=== PATIENT | female | born 1960 | race Caucasian/White ===

== ENCOUNTER 2019-09-01 17:50 | Observation (INO) | payer MEDICAID ==
[2019-09-01] MEDS ORDERED: NITROGLYCERIN 0.4 MG/TAB 25 TAB/BOTTLE SL ONE (18:12)
--- NOTE | 2019-09-01 18:15 | ER Document Report ---
ED Medical Screen (RME) - General Chief Complaint: Chest Pain Stated Complaint: CHEST PAIN Time Seen by Provider: 09/01/19 18:05 Notes: Patient is a 59-year-old female with a past history of a triple bypass surgery 2 years ago, stent placement, and myocardial infarction who presents to the emergency department with chest pain. Patient states that her chest pain started about 40 minutes prior to arrival. She has taken 2 sublingual nitrogly cerin with no relief of her symptoms. Patient states that the pain is in the middle of her chest and states that it feels like heartburn. Patient is a 1 pack-a-day smoker. Of note: Patient has recently changed her last name. Her previous last name was Cristy. Exam: Bradycardia with PVC noted on twelve-lead EKG. I have greeted and performed a rapid initial assessment of this patient. A c omprehensive ED assessment and evaluation of the patient, analysis of test results and completion of medical decision making process will be conducted by an additional ED providers. - Related Data Allergies/Adverse Reactions: Penicillins Allergy (Verified 09/01/19 18:08) Tetracyclines Allergy (Verified 09/01/19 18:08) Physical Exam - Vital signs Vitals: Temp Pulse Resp BP Pulse Ox 98.0 F 112 H 20 159/60 H 96 09/01/19 18:04 09/01/19 18:04 09/01/19 18:04 09/01/19 18:04 09/01/19 18:04 Course - Vital Signs Vital signs: Temp Pulse Resp BP Pulse Ox 98.0 F 112 H 20 159/60 H 96 09/01/19 18:04 09/01/19 18:04 09/01/19 18:04 09/01/19 18:04 09/01/19 18:04
[2019-09-01] MEDS ORDERED: ONDANSETRON HCL INJ/PF 4 MG/2 ML SDV IV ONE (18:38)
[2019-09-01] MEDS: MORPHINE SULFATE 10 MG/ML INJ IV PRN ×2 (18:43→23:14)
--- NOTE | 2019-09-01 18:45 | ER Document Report ---
ED General - General Chief Complaint: Chest Pain Stated Complaint: CHEST PAIN Time Seen by Provider: 09/01/19 18:05 - HPI Notes: Ms. Brewster is a 59-year-old female with a prior history of coronary artery bypass graft surgery at [facility] 2 years ago now presenting with a chief complaint of chest pain onset at rest about 330 this afternoon. Patient says this first time she has had any such discomfort since her prior surgery. She describes this as an oppressive discomfort radiating to fingers of both hands. Mild associated dyspnea. No diaphoresis no nausea or vomiting. Intensity of the pain is now 8/10. Patient unfortunately continues to smoke about 1 pack of cigarettes per day. She is a diabetic has a history of hypertension hyperlipidemia and a positive family history of coronary disease. Patient denies any known history of thromboembolic disease. HEART Score: HISTORY 1 ECG 1 AGE 1 RISK FACTORS 2 TROPONIN 0 TOTAL: 5 If HEART score is = 3 AND both tronponin measurments are normal, the 30 day risk of a major adverse cardiac event (all-cause mortality, myocardia infarction or need for coronary revscularization) is < 1% (Sensitivity 100%, NPV 100%). - Related Data Allergies/Adverse Reactions: Penicillins Allergy (Verified 09/01/19 18:08) Tetracyclines Allergy (Verified 09/01/19 18:08) Past Medical History - General Information source: Patient, Relative - Social History Smoking Status: Current Every Day Smoker Family History: CAD Patient has suicidal ideation: No Patient has homicidal ideation: No Review of Systems - Review of Systems Notes: Constitutional: Negative for fever. HENT: Negative for sore throat. Eyes: Negative for visual changes. Cardiovascular: As per HPI. Respiratory: As per HPI. Gastrointestinal: Negative for abdominal pain, vomiting or diarrhea. Genitourinary: Negative for dysuria. Musculoskeletal: Negative for back pain. Skin: Negative for rash. Neurological: Negative for headaches, weakness or numbness. 10 point ROS negative except as marked above and in HPI. Physical Exam - Vital signs Vitals: Temp Pulse Resp BP Pulse Ox 98.0 F 112 H 20 159/60 H 96 09/01/19 18:04 09/01/19 18:04 09/01/19 18:04 09/01/19 18:04 09/01/19 18:04 - Notes Notes: GENERAL: Well-developed well-nourished appearing in mild discomfort. strong odor of tobacco present . SKIN: Good turgor no rashes. HEAD: Normocephalic atraumatic. EYES: PERRLA. Conjunctivae and sclerae clear. EARS: CANALS AND TMS CLEAR. NOSE: CLEAR. MOUTH: Moist mucosa. Edentulous with dentures. No stridor or edema. No drooling. NECK: Supple. No masses or thyromegaly. No adenopathy. Carotids 2+ without bruits. No JVD. Throat: Clear. BACK: Symmetrical without tenderness. CHEST: Mild anterior chest wall discomfort which does not exactly reproduce her pain. Respirations unlabored. Breath sounds clear and symmetrical. HEART: Slow regular rhythm. No murmur gallop or rub. ABDOMEN: Soft nontender without masses, organomegaly or rebound. Bowel sounds normally active. No bruits. GENITALIA: Deferred. EXTREMITIES: Moderate degenerative changes of interphalangeal joints of both hands. No edema. No calf tenderness. Cap refill less than 1.5 seconds. Dorsalis pedis and posterior tibial pulses 3+ and symmetrical. NEUROLOGICAL: GCS 15. Alert and oriented x3. Normal gait. Fluent speech. Fan Blade Truer nial nerves II through XII intact. Sensorimotor and cerebellar normal. Normal tone. Course - Re-evaluation Re-evalutation: 09/01/19 18:46 Patient is placed on operational intelligence officer with establishment of saline lock IV and she will be given morphine and Zofran at this time. Cardiac enzymes CBC and comprehensive metabolic profile ordered. D-dimer ordered. 09/01/19 19:49 Patient is pain-free at this time. Will repeat EKG. 09/01/19 20:26 Patient has a heart score of 5 and is going to need admission. Her d-dimer was minimally elevated 0.51. I am going to get CTA of the chest to rule out PE before admission. 09/01/19 21:55 CTA negative for PE per radiologist. Hospitalist Dr. Fady Andrade has accepted patient for admission to telemetry observation. - Vital Signs Vital signs: Temp Pulse Resp BP Pulse Ox 98.0 F 112 H 20 159/60 H 96 09/01/19 18:04 09/01/19 18:04 09/01/19 18:04 09/01/19 18:04 09/01/19 18:04 - Laboratory Result Diagrams: 09/01/19 18:42 09/01/19 18:42 Laboratory results interpreted by me: 09/01/19 09/01/19 18:42 19:10 D-Dimer 0.51 H BUN 6 L Glucose 129 H First troponin is normal - Diagnostic Test Radiology reviewed: Reports reviewed - EKG Interpretation by Me EKG shows normal: Sinus rhythm Rate: Bradycardia - Occasional PVCs. Old anteroseptal [place] with no acute ST/T wave changes. Discharge - Discharge Clinical Impression: Chest pain, Cigarette smoker Disposition: ADMITTED OBSERVATION Admitting Provider: Raymond (Hospitalist) Unit Admitted: Telemetry
--- NOTE | 2019-09-01 18:47 | RADIOLOGY REPORT (SQ) ---
EXAM DESCRIPTION: CHEST SINGLE VIEW COMPLETED DATE/TIME: 09/01/2019 6:24 pm REASON FOR STUDY: chest pain COMPARISON: None. EXAM PARAMETERS: NUMBER OF VIEWS: One view. TECHNIQUE: Single frontal radiographic view of the chest acquired. RADIATION DOSE: NA LIMITATIONS: None. FINDINGS: LUNGS AND PLEURA: No opacities, masses or pneumothorax. No pleural effusion. MEDIASTINUM AND HILAR STRUCTURES: No masses. Contour normal. HEART AND VASCULAR STRUCTURES: Heart normal in size. Normal vasculature. BONES: No acute findings. HARDWARE: Sternotomy wires. OTHER: No other significant finding. IMPRESSION: NO ACUTE RADIOGRAPHIC FINDING IN THE CHEST. TECHNICAL DOCUMENTATION: JOB ID: [id number] [employer]- All Rights Reserved Reading location - IP/workstation name: [email or web address]
[2019-09-01 18:53] LABS: ABSOLUTE BASOPHILS # (AUTO) 0.1 10^3/uL (0.0-0.2); ABSOLUTE EOSINOPHILS # (AUTO) 0.2 10^3/uL (0.0-0.6); ABSOLUTE MONOCYTES (AUTO) 0.4 10^3/uL (0.1-1.4); HEMOGLOBIN 13.2 g/dL (12.0-15.5); TOTAL CELLS COUNTED % (AUTO) 100 %
[2019-09-01 18:57] LABS: ABSOLUTE LYMPHOCYTES (AUTO) 2.6 10^3/uL (0.5-4.7); ABSOLUTE NEUT (AUTO) 3.8 10^3/uL (1.7-8.2); BASOPHILS % (AUTO) 1.6 % (0-2); EOSINOPHILS % (AUTO) 2.7 % (0-6); HEMATOCRIT 38.5 % (36.0-47.0); LYMPHOCYTES % (AUTO) 37.1 % (13-45); MEAN CORPUSCULAR HEMOGLOBIN 29.4 pg (27.0-33.4); MEAN CORPUSCULAR HGB CONC 34.2 g/dL (32.0-36.0); MEAN CORPUSCULAR VOLUME 86 fl (80-97); MONOCYTES % (AUTO) 5.3 % (3-13); PLATELET COUNT 291 10^3/uL (150-450); RED BLOOD COUNT 4.48 10^6/uL (3.72-5.28); RED CELL DISTRIBUTION WIDTH 12.8 % (11.5-14.0); SEGMENTED NEUTROPHILS % (AUTO) 53.3 % (42-78); WHITE BLOOD COUNT 7.1 10^3/uL (4.0-10.5)
[2019-09-01 19:12] LABS: ALBUMIN 4.2 g/dL (3.5-5.0); ALKALINE PHOSPHATASE 57 U/L (38-126); ANION GAP 10 (5-19); ASPARTATE AMINO TRANSFERASE 21 U/L (14-36); BILIRUBIN,DIRECT 0.2 mg/dL (0.0-0.4); BILIRUBIN,TOTAL 0.3 mg/dL (0.2-1.3); BLOOD UREA NITROGEN 6 mg/dL (7-20); CALCIUM 9.4 mg/dL (8.4-10.2); CARBON DIOXIDE 25 mmol/L (22-30); CHLORIDE 105 mmol/L (98-107); CREATINE KINASE 87 U/L (30-135); GLUCOSE 129 mg/dL (75-110); POTASSIUM 4.3 mmol/L (3.6-5.0); TOTAL PROTEIN 7.3 g/dL (6.3-8.2)
[2019-09-01 20:06] LABS: PROTHROMBIN TIME 13.1 SEC (11.4-15.4)
--- NOTE | 2019-09-01 21:31 | RADIOLOGY REPORT (SQ) ---
EXAM DESCRIPTION: Rad[facility]: CT CHEST ANGIOGRAPHY WITHOUT THEN WITH IV CONTRAST CLINICAL HISTORY: 59 years Female; Rule out PE; TECHNIQUE: CT angiogram of the chest using intravenous contrast.. MIP reconstructions were performed. All CT scans at this facility use dose modulation, iterative reconstruction, and/or weight based dosing when appropriate to reduce radiation dose to as low as reasonably achievable. COMPARISON: None. FINDINGS: Chest: No filling defects in the central pulmonary arteries. No acute infiltrate, effusion, or pneumothorax. Changes of previous sternotomy are noted. No mediastinal adenopathy. No pericardial effusion. Aorta: Mild scattered calcific plaque. No aneurysm or dissection. IMPRESSION: 1. No CT evidence for pulmonary embolism. 2. No acute pulmonary findings. 3. Previous sternotomy
[2019-09-01] MEDS ORDERED: ACETAMINOPHEN 325 MG TABLET PO PRN (21:55)
[2019-09-01] MEDS ORDERED: NITROGLYCERIN 0.4 MG/TAB 25 TAB/BOTTLE SL PRN (21:55)
[2019-09-01] MEDS ORDERED: ATORVASTATIN CALCIUM 40 MG TABLET PO SCH (22:00)
--- NOTE | 2019-09-01 22:46 | EKG REPORT ---
SEVERITY:- ABNORMAL ECG - SINUS BRADYCARDIA MULTIPLE VENTRICULAR PREMATURE COMPLEXES BORDERLINE LEFT AXIS DEVIATION ABNRM R PROG, CONSIDER ASMI OR LEAD PLACEMENT NONSPECIFIC T ABNORMALITIES, ANT-LAT LEADS : Confirmed by: Gary Mcbride MD 01-Sep-2019 22:46:14
[2019-09-02] MEDS ORDERED: TRAZODONE HCL 50 MG TABLET PO ONE (00:15)
[2019-09-02] MEDS ORDERED: ZOLPIDEM TARTRATE 5 MG TABLET PO ONE (00:15)
--- NOTE | 2019-09-02 06:34 | PDOC H&P ---
History of Present Illness Admission Date/PCP: 09/01/19 22:36 Patient complains of: Chest pain History of Present Illness: JENNIFER EUGENE is a 59 year old female with a past medical history of hypertension, dyslipidemia, anxiety, depression, coronary artery disease status post coronary artery bypass grafting at [facility] and in 2015. Patient presents with 4 hours of chest pain occurring after an argument with family members resulting in sharp retrosternal chest pain associated with shortness of breath without radiation, nausea vomiting or palpitations. It was 5 out of 5 intensity currently 1 out of 5. It was not alleviated by nitroglycerin sublingual x2, she was unable to identify exacerbating factors. Patient's last stress test was greater than a year ago which was unremarkable according to the patient. She otherwise denies recent change in medications however her prescriptions of Abilify and trazodone suggest noncompliance. Past Medical History Cardiac Medical History: Reports: Myocardial Infarction, Hyperlipidema, Hypertension Pulmonary Medical History: Reports: Chronic Obstructive Pulmonary Disease (COPD) Endocrine Medical History: Reports: Diabetes Mellitus Type 2 GI Medical History: Reports: Gastroesophageal Reflux Disease Psychiatric Medical History: Reports: Depression, General Anxiety Disorder, Tobacco Dependency Past Surgical History Past Surgical History: Reports: Cardiac Catheterization, Hysterectomy, Orthopedic Surgery Social History Information Source: Patient, [facility] Records Lives with: Family Smoking Status: Current Every Day Smoker Frequency of Alcohol Use: None Drugs: None - Advance Directive Resuscitation Status: Full Code Family History Family History: CAD Parental Family History Reviewed: Yes Children Family History Reviewed: Yes Sibling(s) Family History Reviewed.: Yes Medication/Allergy Allergies/Adverse Reactions: Penicillins Allergy (Verified 09/01/19 18:08) Tetracyclines Allergy (Verified 09/01/19 18:08) Review of Systems Constitutional: ABSENT: chills, fever(s), headache(s), weight gain, weight loss Eyes: ABSENT: visual disturbances Ears: ABSENT: hearing changes Cardiovascular: ABSENT: chest pain, dyspnea on exertion, edema, orthropnea, palpitations Respiratory: ABSENT: cough, hemoptysis Gastrointestinal: ABSENT: abdominal pain, constipation, diarrhea, hematemesis, hematochezia, nausea, vomiting Genitourinary: ABSENT: dysuria, hematuria Musculoskeletal: ABSENT: joint swelling Integumentary: ABSENT: rash, wounds Neurological: ABSENT: abnormal gait, abnormal speech, confusion, dizziness, focal weakness, syncope Psychiatric: ABSENT: anxiety, depression, homidical ideation, suicidal ideation Endocrine: ABSENT: cold intolerance, heat intolerance, polydipsia, polyuria Hematologic/Lymphatic: ABSENT: easy bleeding, easy bruising Physical Exam Vital Signs: Temp Pulse Resp BP Pulse Ox 97.7 F 112 H 14 130/53 H 95 09/02/19 06:00 09/01/19 18:04 09/02/19 05:01 09/02/19 05:01 09/02/19 05:01 Intake & Output 08/31/19 09/01/19 09/02/19 11:59 11:59 11:59 Weight 84.1 kg General appearance: PRESENT: no acute distress, well-developed, well-nourished Head exam: PRESENT: atraumatic, normocephalic Eye exam: PRESENT: conjunctiva pink, EOMI, PERRLA. ABSENT: scleral icterus Ear exam: PRESENT: normal external ear exam Mouth exam: PRESENT: moist, tongue midline Neck exam: ABSENT: carotid bruit, JVD, lymphadenopathy, thyromegaly Respiratory exam: PRESENT: clear to auscultation jesus. ABSENT: rales, rhonchi, wheezes Cardiovascular exam: PRESENT: RRR. ABSENT: diastolic murmur, rubs, systolic murmur Pulses: PRESENT: normal dorsalis pedis pul Vascular exam: PRESENT: normal capillary refill GI/Abdominal exam: PRESENT: normal bowel sounds, soft. ABSENT: distended, guarding, mass, organolmegaly, rebound, tenderness Rectal exam: PRESENT: deferred Extremities exam: PRESENT: full ROM. ABSENT: calf tenderness, clubbing, pedal edema Neurological exam: PRESENT: alert, awake, oriented to person, oriented to place, oriented to time, oriented to situation, CN II-XII grossly intact. ABSENT: motor sensory deficit Psychiatric exam: PRESENT: appropriate affect, normal mood. ABSENT: homicidal ideation, suicidal ideation Skin exam: PRESENT: dry, intact, warm. ABSENT: cyanosis, rash Results Laboratory Results: 09/01/19 18:42 09/01/19 18:42 09/01/19 09/01/19 09/01/19 18:42 18:42 18:42 WBC 7.1 RBC 4.48 Hgb 13.2 Hct 38.5 MCV 86 MCH 29.4 MCHC 34.2 RDW 12.8 Plt Count 291 Seg Neutrophils % 53.3 Sodium 139.9 Potassium 4.3 Chloride 105 Carbon Dioxide 25 Anion Gap 10 BUN 6 L Creatinine 0.71 Est GFR ( Amer) > 60 Glucose 129 H Calcium 9.4 Total Bilirubin 0.3 AST 21 Alkaline Phosphatase 57 Total Protein 7.3 Albumin 4.2 Lipase 24.6 TSH 3.77 09/01/19 09/01/19 09/02/19 18:42 18:42 00:46 Creatine Kinase 87 Troponin I < 0.012 < 0.012 Impressions: Chest X-Ray 09/01/19 18:12 IMPRESSION: NO ACUTE RADIOGRAPHIC FINDING IN THE CHEST. Chest/Abdomen CTA 09/01/19 20:24 IMPRESSION: 1. No CT evidence for pulmonary embolism. 2. No acute pulmonary findings. 3. Previous sternotomy Assessment and Plan - Diagnosis (1) Chest pain Is this a current diagnosis for this admission?: Yes Plan: Atypical chest pain sharp in nature unrelieved by nitroglycerin complicated by coronary artery disease and tobacco. Follow-up serial cardiac enzymes and stress test. (2) Hypertension Is this a current diagnosis for this admission?: Yes Plan: WILL inhibitor and Norvasc as needed (3) Dyslipidemia Is this a current diagnosis for this admission?: Yes Plan: Lipitor, follow-up lipid profile (4) Diabetes Is this a current diagnosis for this admission?: Yes Plan: Humalog sliding scale, follow-up A1c (5) Anxiety and depression Is this a current diagnosis for this admission?: Yes Plan: Education, continue trazodone and Abilify (6) Cigarette smoker Is this a current diagnosis for this admission?: Yes Plan: Tobacco cessation counseling and nicotine replacement options discussed - Time Time Spent with patient: 25-34 minutes
[2019-09-02 07:13] VITALS: BP 116/55
[2019-09-02] MEDS ORDERED: ASPIRIN 81 MG TABLET, ENT COATED PO SCH (10:00)
--- NOTE | 2019-09-02 16:31 | Left Against Medical Advice ---
Against Medical Advice Admission Date/Time: 09/01/19 22:36 Primary Care Provider: Date of Patient Emigration: 09/02/19 - Diagnosis: (1) Anxiety and depression Is this a current diagnosis for this admission?: Yes (2) Chest pain Is this a current diagnosis for this admission?: Yes (3) Cigarette smoker Is this a current diagnosis for this admission?: Yes (4) Diabetes Is this a current diagnosis for this admission?: Yes (5) Dyslipidemia Is this a current diagnosis for this admission?: Yes (6) Hypertension Is this a current diagnosis for this admission?: Yes - Summary: Summary: Please see Admission and Progress Notes as well. JENNIFER EUGENE is a 59 F, who LEFT AGAINST MEDICAL ADVICE. The Patient was admitted on 09/01/19 22:36. The patient was admitted to the hospitalist service for chest pain rule out. Troponins were negative x3, d-dimer was elevated, however, chest CTA was negative for PE. EKG demonstrated sinus bradycardia without ST segment changes. Patient was admitted with standard care set with aspirin, statin, follow-up labs, and nuclear stress testing. Received call from nursing approximately 830 this morning to report that the patient had decided to leave AGAINST MEDICAL ADVICE prior to stress test.
[2019-09-02] MEDS ORDERED: ZOLPIDEM TARTRATE 5 MG TABLET PO SCH (22:00)
[2019-09-02] MEDS ORDERED: TRAZODONE HCL 50 MG TABLET PO SCH (22:00)
== END 2019-09-02 08:29 | disposition left against medical advice (07) ==
LOC: ER 17:50 → EH 22:36
PROVIDERS: ADMIT Internal Medicine; ATTEND Internal Medicine
DX: R07.89 Other chest pain (principal); F41.1 Generalized anxiety disorder; F32.9 Major depressive disorder, single episode, unspecified; F17.210 Nicotine dependence, cigarettes, uncomplicated; E11.9 Type 2 diabetes mellitus without complications; E78.5 Hyperlipidemia, unspecified; I10 Essential (primary) hypertension; R06.02 Shortness of breath; I25.10 Atherosclerotic heart disease of native coronary artery without angina pectoris; I49.3 Ventricular premature depolarization; I25.2 Old myocardial infarction; Z95.1 Presence of aortocoronary bypass graft; R00.1 Bradycardia, unspecified; Z82.49 Family history of ischemic heart disease and other diseases of the circulatory system; Z95.5 Presence of coronary angioplasty implant and graft
CPT/HCPCS: 93005; 99285; 96374; 96375; 36415 ×2; 82550; 83690; 84443; 85025; 85610; 80053; 84484 ×2; 85379; 71045; 71275; 93010; G0378 ×2; J3490 ×5; J2270; J2405

== ENCOUNTER 2019-12-28 12:28 | Emergency (ER) | payer MEDICAID ==
--- NOTE | 2019-12-28 14:03 | ER Document Report ---
ED Medical Screen (RME) - General Chief Complaint: Leg Pain Stated Complaint: RIGHT LEG SWELLING/PAIN Time Seen by Provider: 12/28/19 13:52 Primary Care Provider: SHANIKA TESFAYE MD [Primary Care Provider] - Follow up as needed Mode of Arrival: Ambulatory Information source: Patient Notes: 59-year-old female patient presents the emergency department chief complaint of right lower extremity pain and swelling. Patient reports swelling at the ankle and pain in the back of her calf. Patient reports history of "blockages in both legs that she has taken Plavix for. She denies any history of gout. There is definitely swelling noted at the lateral ankle, she denies any injury. She also reports pain with palpation on the posterior calf. For this reason both a venous Doppler and uric acid will be ordered. I have greeted and performed a rapid initial assessment of this patient. A comprehensive ED assessment and evaluation of the patient, analysis of test results and completion of the medical decision making process will be conducted by additional ED providers. I have specifically instructed the patient or family members with the patient to immediately return to any nursing staff should anything change in the patient's condition or with their chief complaint. TRAVEL OUTSIDE OF THE [place] IN LAST 30 DAYS: No - Related Data Allergies/Adverse Reactions: Penicillins Allergy (Verified 09/01/19 18:08) Tetracyclines Allergy (Verified 09/01/19 18:08) Home Medications: realo/PG Past Medical History - Social History Chew tobacco use (# tins/day): No Frequency of alcohol use: None Drug Abuse: None - Past Medical History Cardiac Medical History: Reports: Hx Heart Attack, Hx Hypercholesterolemia, Hx Hypertension Pulmonary Medical History: Reports: Hx COPD Endocrine Medical History: Reports: Hx Diabetes Mellitus Type 2 GI Medical History: Reports: Hx Gastroesophageal Reflux Disease Psychiatric Medical History: Reports: Hx Depression Past Surgical History: Reports: Hx Cardiac Catheterization, Hx Cardiac Surgery, Hx Gynecologic Surgery, Hx Hysterectomy, Hx Orthopedic Surgery Physical Exam - Vital signs Vitals: Temp Pulse Resp BP Pulse Ox 97.7 F 66 16 142/62 H 98 12/28/19 13:49 12/28/19 13:49 12/28/19 13:49 12/28/19 13:49 12/28/19 13:49 Course - Vital Signs Vital signs: Temp Pulse Resp BP Pulse Ox 97.7 F 66 16 142/62 H 98 12/28/19 13:49 12/28/19 13:49 12/28/19 13:49 12/28/19 13:49 12/28/19 13:49 Doctor's Discharge - Discharge Referrals: SHANIKA TESFAYE MD [Primary Care Provider] - Follow up as needed
--- NOTE | 2019-12-28 16:06 | ER Document Report ---
ED Extremity Problem, Lower - General Chief Complaint: Leg Pain Stated Complaint: RIGHT LEG SWELLING/PAIN Time Seen by Provider: 12/28/19 13:52 Primary Care Provider: SHANIKA TESFAYE MD [Primary Care Provider] - Follow up as needed Mode of Arrival: Ambulatory Notes: Patient is a 59-year-old female who presents to the emergency department with a chief complaint of right leg pain. Patient states that her symptoms started about a week ago. She was seen by her primary care provider 4 days ago and had x-rays done. Patient denies any injury. TRAVEL OUTSIDE OF THE [place] IN LAST 30 DAYS: No - Related Data Allergies/Adverse Reactions: Penicillins Allergy (Verified 09/01/19 18:08) Tetracyclines Allergy (Verified 09/01/19 18:08) Home Medications: realo/PG Past Medical History - General Information source: Patient - Social History Smoking Status: Current Every Day Smoker Chew tobacco use (# tins/day): No Frequency of alcohol use: None Drug Abuse: None Family History: CAD Patient has suicidal ideation: No Patient has homicidal ideation: No - Past Medical History Cardiac Medical History: Reports: Hx Heart Attack, Hx Hypercholesterolemia, Hx Hypertension Pulmonary Medical History: Reports: Hx COPD Endocrine Medical History: Reports: Hx Diabetes Mellitus Type 2 GI Medical History: Reports: Hx Gastroesophageal Reflux Disease Psychiatric Medical History: Reports: Hx Depression Past Surgical History: Reports: Hx Cardiac Catheterization, Hx Cardiac Surgery, Hx Gynecologic Surgery, Hx Hysterectomy, Hx Orthopedic Surgery Review of Systems - Review of Systems Notes: REVIEW OF SYSTEMS: CONSTITUTIONAL : Denies recent illness. Denies recent unintentional weight loss. Denies fever, chills, or sweats. EENT: Denies eye, ear, throat, or mouth pain, discharge, or symptoms. Denies nasal or sinus congestion. CARDIOVASCULAR: Denies chest pain. RESPIRATORY: Denies shortness of breath, cough, congestion, difficulty breathing, or wheezing. GASTROINTESTINAL: Denies nausea, vomiting, and diarrhea. Denies abdominal pain. Denies constipation. GENITOURINARY: Denies difficulty urinating, burning, blood in urine, urgency or frequency. MUSCULOSKELETAL: Denies neck and back pain. See HPI. SKIN: Denies rash, itchiness, or lesions HEMATOLOGIC : Denies easy bruising or bleeding. LYMPHATIC: Denies swollen, painful, enlarged glands. NEUROLOGICAL: Denies no numbness or tingling denies weakness. Denies headache. Denies altered mental status. Denies alteration in speech. PSYCHIATRIC: Denies stress, anxiety, alteration in sleep patterns, or depression. All other systems reviewed and negative. Physical Exam - Vital signs Vitals: Temp Pulse Resp BP Pulse Ox 97.7 F 66 16 142/62 H 98 12/28/19 13:49 12/28/19 13:49 12/28/19 13:49 12/28/19 13:49 12/28/19 13:49 - Notes Notes: PHYSICAL EXAMINATION: GENERAL: Appears well, healthy, well-nourished, no acute distress. HEAD: Normocephalic, atraumatic. EYES: PERRL, conjunctiva normal, all extraocular movements intact, sclera nonicteric ENT: Moist mucous membranes. NECK: Supple, no noticeable swelling, redness, rash. Normal range of motion. LUNGS: Equal breath sounds bilaterally and clear to auscultation. No wheezes rales or rhonchi. CARDIOVASCULAR: S1-S2, regular rate, regular rhythm. Radial pulses 2+, normal. ABDOMEN: Normoactive bowel sounds. Soft, nontender, no guarding, no rebound tenderness, and no masses palpated. EXTREMITIES: Normal strength and range of motion, no pitting or edema. No cyanosis. Tenderness noted to right calf. NEUROLOGICAL: Moves all extremities upon command. Strength 5/5 in all extremities. PSYCH: Normal mood, normal affect. SKIN: Warm, dry. No rash, lesions, ulcerations noted. Normal skin turgor. Course - Re-evaluation Re-evalutation: 12/28/19 17:11 Patient's venous Doppler study is unofficially negative. Patient will follow-up with her primary care provider. Suspect patient has diabetic neuropathy causing her pain. Advised the patient to follow-up with her primary care provider to see if she can be put on gabapentin. She is in agreement with this plan. Follow-up precautions were given. Verbal discharge instructions were given to the patient. They verbalized understanding. They are stable for discharge. - Vital Signs Vital signs: Temp Pulse Resp BP Pulse Ox 97.7 F 66 16 142/62 H 98 12/28/19 13:49 12/28/19 13:49 12/28/19 13:49 12/28/19 13:49 12/28/19 13:49 Discharge - Discharge Clinical Impression: Right leg pain Condition: Stable Disposition: HOME, SELF-CARE Additional Instructions: You were seen today in the emergency department for right leg pain. Your ultrasound was normal. Please follow-up with your primary care provider in regards to this visit. Continue taking your current pain medication and inquire about taking gabapentin with your primary care provider. Referrals: SHANIKA TESFAYE MD [Primary Care Provider] - Follow up in 3-5 days
[2019-12-28 18:14] VITALS: BP 140/61
--- NOTE | 2019-12-29 11:13 | RADIOLOGY REPORT (SQ) ---
EXAM DESCRIPTION: VENOUS UNILATERAL LOWER COMPLETED DATE/TIME: 12/28/2019 3:29 pm REASON FOR STUDY: RLE pain/swellling COMPARISON: None. TECHNIQUE: Dynamic and static gandhi scale and color images acquired of the right leg venous system. S elected spectral images acquired with additional compression and augmentation maneuvers. The contrala teral common femoral vein and saphenofemoral junction were also imaged. Images stored on PACS. LIMITATIONS: None. FINDINGS: COMMON FEMORAL: Normal phasicity, compression and augmentation. No visualized echogenic ma terial on gandhi scale. No defects on color images. FEMORAL: Normal compression and augmentation. No visualized echogenic material on gandhi scale. No defe cts on color images. POPLITEAL: Normal compression, augmentation. No visualized echogenic material on gandhi scale. No defec ts on color images. CALF VESSELS: Normal compression, augmentation. No visualized echogenic material on gandhi scale. No de fects on color images. GSV and SSV: Normal compression, augmentation. No visualized echogenic material on gandhi scale. No def ects on color images. ANY DEEP VENOUS INSUFFICIENCY: No. ANY EVIDENCE OF POPLITEAL CYST: 0.3 x 2.6 x 4 cm fluid collection in the upper calf. OTHER: No other significant finding. CONTRALATERAL COMMON FEMORAL VEIN AND SAPHENOFEMORAL JUNCTION: Normal phasicity, compression and augmentation. No visualized echogenic material on gandhi scale. No de fects on color images. IMPRESSION: NO EVIDENCE DVT OR SVT IN THE RIGHT LEG. FLUID COLLECTION IN THE UPPER CALF, MOST LIKELY A POPLITEAL CYST. POSSIBLY RUPTURED. TECHNICAL DOCUMENTATION: JOB ID: [id number] 2010 [employer]- All Rights Reserved Reading location - IP/workstation name: [email or web address]
== END 2019-12-28 17:45 | disposition home or self-care (01) ==
LOC: ER 12:28
DX: M79.604 Pain in right leg (principal); E11.9 Type 2 diabetes mellitus without complications; I10 Essential (primary) hypertension; F17.200 Nicotine dependence, unspecified, uncomplicated; Z88.0 Allergy status to penicillin; Z88.1 Allergy status to other antibiotic agents
CPT/HCPCS: 36415; 84550; 93971; 99284

== ENCOUNTER 2020-03-04 14:02 | Emergency (ER) | payer MEDICAID ==
--- NOTE | 2020-03-04 14:30 | ER Document Report ---
ED Medical Screen (RME) - General Chief Complaint: Numbness Stated Complaint: BODY NUMBNESS Time Seen by Provider: 03/04/20 14:22 Primary Care Provider: SHANIKA TESFAYE MD [Primary Care Provider] - Follow up as needed Mode of Arrival: Ambulatory Information source: Patient Notes: 60-year-old female with history of cardiac disease, cardiac surgeries, high blood pressure, mental health issues presents emergency department with reports that she is numb from her waist down and also her fingertips are numb. She reports she noticed this 3 to 4 days ago when she went to go the bathroom and her groin was numb. She does report she has a history of back pain. She is waiting for pain management and back surgery. She denies fever vomiting diarrhea. Denies trauma. No reports of urinary or bowel incontinence or retention. She reports she is voiding and bowel movements normal. No weakness noted. Patient reports she only feels pressure with palpation, no obvious weakness, ambulates without problems. Patient reports she has a family history of strokes. I have greeted and performed a rapid initial assessment of this patient. A comprehensive ED assessment and evaluation of the patient, analysis of test results and completion of the medical decision making process will be conducted by additional ED providers. TRAVEL OUTSIDE OF THE [place] IN LAST 30 DAYS: No - Related Data Allergies/Adverse Reactions: Penicillins Allergy (Verified 09/01/19 18:08) Tetracyclines Allergy (Verified 09/01/19 18:08) Past Medical History - Social History Frequency of alcohol use: None Drug Abuse: None - Past Medical History Cardiac Medical History: Reports: Hx Heart Attack, Hx Hypercholesterolemia, Hx Hypertension Pulmonary Medical History: Reports: Hx COPD Endocrine Medical History: Reports: Hx Diabetes Mellitus Type 2 GI Medical History: Reports: Hx Gastroesophageal Reflux Disease Psychiatric Medical History: Reports: Hx Depression Past Surgical History: Reports: Hx Cardiac Catheterization, Hx Cardiac Surgery, Hx Gynecologic Surgery, Hx Hysterectomy, Hx Orthopedic Surgery Physical Exam - Vital signs Vitals: Temp Pulse Resp BP Pulse Ox 98.1 F 83 16 129/59 H 96 03/04/20 14:07 03/04/20 14:07 03/04/20 14:07 03/04/20 14:07 03/04/20 14:07 Course - Vital Signs Vital signs: Temp Pulse Resp BP Pulse Ox 98.1 F 83 16 129/59 H 96 03/04/20 14:21 03/04/20 14:07 03/04/20 14:07 03/04/20 14:07 03/04/20 14:07 Doctor's Discharge - Discharge Referrals: SHANIKA TESFAYE MD [Primary Care Provider] - Follow up as needed
[2020-03-04 15:09] LABS: ABSOLUTE BASOPHILS # (AUTO) 0.1 10^3/uL (0.0-0.2); ABSOLUTE EOSINOPHILS # (AUTO) 0.1 10^3/uL (0.0-0.6); ABSOLUTE LYMPHOCYTES (AUTO) 2.6 10^3/uL (0.5-4.7); ABSOLUTE MONOCYTES (AUTO) 0.3 10^3/uL (0.1-1.4); ABSOLUTE NEUT (AUTO) 5.8 10^3/uL (1.7-8.2); BASOPHILS % (AUTO) 0.9 % (0-2); EOSINOPHILS % (AUTO) 1.4 % (0-6); HEMATOCRIT 40.4 % (36.0-47.0); HEMOGLOBIN 13.8 g/dL (12.0-15.5); LYMPHOCYTES % (AUTO) 28.9 % (13-45); MEAN CORPUSCULAR HGB CONC 34.2 g/dL (32.0-36.0); MEAN CORPUSCULAR VOLUME 82 fl (80-97); MONOCYTES % (AUTO) 3.8 % (3-13); PLATELET COUNT 330 10^3/uL (150-450); RED BLOOD COUNT 4.93 10^6/uL (3.72-5.28); RED CELL DISTRIBUTION WIDTH 13.1 % (11.5-14.0); TOTAL CELLS COUNTED % (AUTO) 100 %; WHITE BLOOD COUNT 8.9 10^3/uL (4.0-10.5)
[2020-03-04 15:15] LABS: PROTHROMBIN TIME 12.2 SEC (11.4-15.4)
[2020-03-04 15:17] LABS: APPEARANCE,URINE CLEAR; BILIRUBIN,URINE NEGATIVE (NEGATIVE); COLOR,URINE STRAW; GLUCOSE, URINE NEGATIVE (NEGATIVE); KETONES,URINE NEGATIVE (NEGATIVE); LEUKOCYTE ESTERASE,URINE SMALL (NEGATIVE); NITRITE,URINE NEGATIVE (NEGATIVE); PROTEIN,URINE NEGATIVE (NEGATIVE); URINE SPECIFIC GRAVITY 1.003; UROBILINOGEN,URINE NEGATIVE mg/dL (<2.0)
--- NOTE | 2020-03-04 15:18 | RADIOLOGY REPORT (SQ) ---
EXAM DESCRIPTION: CT HEAD WITHOUT IMAGES COMPLETED DATE/TIME: 03/04/2020 3:10 pm REASON FOR STUDY: numbness COMPARISON: None. TECHNIQUE: Axial images acquired through the brain without intravenous contrast. Images reviewed wi th bone, brain and subdural windows. Additional sagittal and coronal reconstructions were generated. Images stored on PACS. All CT scanners at this facility use dose modulation, iterative reconstruction, and/or weight based d osing when appropriate to reduce radiation dose to as low as reasonably achievable (ALARA). [facility]: Dose Right [facility]: CareDose [facility]: Dose Right [facility]: Teradose 4D [facility]: [employer] RADIATION DOSE: CT Rad equipment meets quality standard of care and radiation dose reduction techniq ues were employed. CTDIvol: 53.2 mGy. DLP: 1017 mGy-cm. mGy. LIMITATIONS: None. FINDINGS: VENTRICLES: Normal size and contour. CEREBRUM: No masses. No hemorrhage. No midline shift. No evidence for acute infarction. Normal gra y/white matter differentiation. No areas of low density in the white matter. CEREBELLUM: No masses. No hemorrhage. No alteration of density. No evidence for acute infarction. EXTRAAXIAL SPACES: No fluid collections. No masses. ORBITS AND GLOBE: No intra- or extraconal masses. Normal contour of globe without masses. CALVARIUM: No fracture. PARANASAL SINUSES: No fluid or mucosal thickening. SOFT TISSUES: No mass or hematoma. OTHER: No other significant finding. IMPRESSION: NORMAL BRAIN CT WITHOUT CONTRAST. EVIDENCE OF ACUTE STROKE: NO. COMMENT: Quality ID # [id number]: Final reports with documentation of one or more dose reduction techniques (e.g., Automated exposure control, adjustment of the mA and/or kV according to patient size, use of iterative reconstruction technique) TECHNICAL DOCUMENTATION: JOB ID: [id number] 2010 [employer]- All Rights Reserved Reading location - IP/workstation name: [email or web address]
[2020-03-04 15:26] LABS: ALBUMIN 4.5 g/dL (3.5-5.0); ALKALINE PHOSPHATASE 69 U/L (38-126); ANION GAP 9 (5-19); ASPARTATE AMINO TRANSFERASE 21 U/L (14-36); BILIRUBIN,DIRECT 0.1 mg/dL (0.0-0.4); BILIRUBIN,TOTAL 0.3 mg/dL (0.2-1.3); BLOOD UREA NITROGEN 6 mg/dL (7-20); CALCIUM 9.9 mg/dL (8.4-10.2); CARBON DIOXIDE 29 mmol/L (22-30); CHLORIDE 95 mmol/L (98-107); CREATINE KINASE 51 U/L (30-135); GLUCOSE 101 mg/dL (75-110); POTASSIUM 4.4 mmol/L (3.6-5.0); TOTAL PROTEIN 7.6 g/dL (6.3-8.2)
[2020-03-04] MEDS ORDERED: CYCLOBENZAPRINE HCL 10 MG TABLET PO ONE (16:39)
[2020-03-04] MEDS ORDERED: OXYCODONE-ACETAMINOPHEN 5-325 MG TABLET PO ONE (16:39)
--- NOTE | 2020-03-04 16:41 | ER Document Report ---
ED General - General Chief Complaint: Numbness Stated Complaint: BODY NUMBNESS Time Seen by Provider: 03/04/20 14:22 Primary Care Provider: SHANIKA TESFAYE MD [NO LOCAL MD] - Follow up as needed Mode of Arrival: Ambulatory Information source: Patient Notes: 60-year-old female past medical history significant for herniated disks, hypertension, diabetes, hyperlipidemia, coronary artery disease, bypass with 4 stents, [place], chronic pain. Blocked arteries in her legs. Presents to the emergency room complaining of tingling to both of her hands as well as her legs for the past 2 to 3 days. States her leg pain was worse today. Not currently taking any medications for her pain. States she contacted her primary care physician at [facility] and they were unable to see her today. States she is waiting on referral to pain management that is still pending. She denies any new trauma or injury. She denies any loss control of her bowels or bladder, no saddle anesthesia, no red flags. TRAVEL OUTSIDE OF THE [place] IN LAST 30 DAYS: No - Related Data Allergies/Adverse Reactions: Penicillins Allergy (Verified 09/01/19 18:08) Tetracyclines Allergy (Verified 09/01/19 18:08) Past Medical History - General Information source: Patient - Social History Smoking Status: Current Every Day Smoker Frequency of alcohol use: None Drug Abuse: None Family History: CAD Patient has homicidal ideation: No - Past Medical History Cardiac Medical History: Reports: Hx Heart Attack, Hx Hypercholesterolemia, Hx Hypertension Pulmonary Medical History: Reports: Hx COPD Endocrine Medical History: Reports: Hx Diabetes Mellitus Type 2 GI Medical History: Reports: Hx Gastroesophageal Reflux Disease Psychiatric Medical History: Reports: Hx Depression Past Surgical History: Reports: Hx Cardiac Catheterization, Hx Cardiac Surgery, Hx Gynecologic Surgery, Hx Hysterectomy, Hx Orthopedic Surgery Review of Systems - Review of Systems Constitutional: No symptoms reported EENT: No symptoms reported Cardiovascular: No symptoms reported Respiratory: No symptoms reported Genitourinary: No symptoms reported Musculoskeletal: Back pain, Muscle pain Skin: No symptoms reported Neurological/Psychological: Numbness, Tingling -: Yes All other systems reviewed and negative Physical Exam - Vital signs Vitals: Temp Pulse Resp BP Pulse Ox 98.1 F 83 16 129/59 H 96 03/04/20 14:07 03/04/20 14:07 03/04/20 14:07 03/04/20 14:07 03/04/20 14:07 - General General appearance: Appears well, Alert In distress: Mild - Respiratory Respiratory status: No respiratory distress Chest status: Nontender Breath sounds: Normal Chest palpation: Normal - Cardiovascular Rhythm: Regular Heart sounds: Normal auscultation Murmur: No - Abdominal Inspection: Normal Distension: No distension Bowel sounds: Normal Tenderness: Nontender Organomegaly: No organomegaly - Back Back: Normal, Tender - Tenderness on palpation from L4-S1. Tenderness over the bilateral sciatic notches. Muscle spasm palpated in the lower lumbar region., Vertebra tenderness. No: Deformity/step-off, CVA tenderness - Extremities General upper extremity: Normal inspection, Nontender, Normal color, Normal ROM, Normal temperature General lower extremity: Normal inspection, Nontender, Normal color, Normal ROM, Normal temperature, Normal weight bearing. No: Emily's sign - Neurological Neuro grossly intact: Yes Cognition: Normal Orientation: AAOx4 Romel Coma Scale Eye Opening: Spontaneous Romel Coma Scale Verbal: Oriented Romel Coma Scale Motor: Obeys Commands Romel Coma Scale Total: 15 Speech: Normal Cranial nerves: Normal. No: Facial palsy Cerebellar coordination: Normal, Heel-mccabe. 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 No: Pronator drift, Weakness Babinski reflex: Normal (flexor plantar) Sensory: Normal Knee - Reflex grade: 2 = Normal Ankle - Reflex grade: 2 = Normal - Skin Skin Temperature: Warm Skin Moisture: Dry Skin Color: Normal Course - Re-evaluation Re-evalutation: 03/04/20 16:45 Patient is resting comfortably she is neurovascularly and neurologically intact. Reviewed CAT scan, EKG, and lab results with patient. Patient requesting pain medication. She was counseled that she will be given 1 Percocet here in the emergency room but cannot be discharged home on narcotics as she has a history of chronic pain. Will discharge home on p.o. Flexeril. Patient is ambulatory with a steady gait. 03/04/20 17:10 Patient with decreased pain. She is ambulatory with a steady gait. She was counseled to follow-up patient with her primary care physician for further evaluation and treatment of her chronic pain syndrome. Take Tylenol and/or Motrin as needed for pain. Flexeril as prescribed. She was given strict return to the emergency room guidelines. Return for any new or worsening symptoms. All questions were answered. Patient verbalized understanding and agrees with plan of care. - Vital Signs Vital signs: Temp Pulse Resp BP Pulse Ox 98.7 F 83 19 143/66 H 99 03/04/20 17:14 03/04/20 14:07 03/04/20 17:06 03/04/20 17:06 03/04/20 17:06 - Laboratory Result Diagrams: 03/04/20 14:53 03/04/20 14:53 Laboratory results interpreted by me: 03/04/20 03/04/20 14:53 14:53 Sodium 132.6 L Chloride 95 L BUN 6 L Ur Leukocyte Esterase SMALL H - Diagnostic Test Radiology reviewed: Reports reviewed - EKG Interpretation by Me Additional EKG results interpreted by me: 03/04/20 16:45 EKG interpreted by ED parris Oliver. Discharge - Discharge Clinical Impression: Bilateral leg paresthesia, Arm paresthesia, right, Arm paresthesia, left Chronic back pain Qualifiers: Back pain location: low back pain Back pain laterality: bilateral Sciatica presence: with sciatica Sciatica laterality: bilateral sciatica Qualified Code(s): M54.42 - Lumbago with sciatica, left side Condition: Stable Disposition: HOME, SELF-CARE Instructions: Chronic Back Pain ([facility]), Numbness or Paresthesia ([facility]) Additional Instructions: Medications as prescribed. Tylenol and/or Motrin as needed for pain. Outpatien t follow-up with primary care physician as discussed. Return for any new or worsening symptoms. Prescriptions: Cyclobenzaprine HCl [Flexeril 10 mg Tablet] 10 mg PO TIDP PRN #15 tab PRN Reason: Referrals: SHANIKA TESFAYE MD [NO LOCAL MD] - Follow up as needed
[2020-03-04 17:14] VITALS: BP 143/66
--- NOTE | 2020-03-04 18:51 | EKG REPORT ---
SEVERITY:- ABNORMAL ECG - SINUS RHYTHM BORDERLINE LEFT AXIS DEVIATION NONSPECIFIC T ABNORMALITIES, DIFFUSE LEADS : Confirmed by: Felicity Bryant MD 04-Mar-2020 18:49:24
== END 2020-03-04 17:14 | disposition home or self-care (01) ==
LOC: ER 14:02
DX: M54.42 Lumbago with sciatica, left side (principal); R20.0 Anesthesia of skin; I10 Essential (primary) hypertension; E11.9 Type 2 diabetes mellitus without complications; E78.5 Hyperlipidemia, unspecified; I25.10 Atherosclerotic heart disease of native coronary artery without angina pectoris; I25.2 Old myocardial infarction; G89.29 Other chronic pain; Z88.0 Allergy status to penicillin; Z88.8 Allergy status to other drugs, medicaments and biological substances; F17.200 Nicotine dependence, unspecified, uncomplicated; J44.9 Chronic obstructive pulmonary disease, unspecified
CPT/HCPCS: 93005; 99284; 36415; 82550; 85025; 85610; 85730; 80053; 81001; 70450; 93010; J3490

== ENCOUNTER 2020-08-05 09:18 | Emergency (ER) | payer MEDICAID ==
--- NOTE | 2020-08-05 10:09 | ER Document Report ---
ED Medical Screen (RME) - General Chief Complaint: Fall Injury Stated Complaint: KNEE AND FOOT INJURY Time Seen by Provider: 08/05/20 10:04 Primary Care Provider: KAY THOMAS PA-C [Primary Care Provider] - Follow up as needed Information source: Patient Notes: Patient presents after syncopal episode at home. Patient states she got up and started to get dizzy and woke up on the floor. Patient states that she injured her left knee and right foot when she fell. Patient states that she has had these blackout episodes in the past with the last one being about 6 months ago. Patient denies any headache or chest pain at this time. Patient reports history of diabetes, CAD and bipolar I have greeted and performed a rapid initial assessment of this patient. A comprehensive ED assessment and evaluation of the patient, analysis of test results and completion of the medical decision making process will be conducted by additional ED providers. TRAVEL OUTSIDE OF THE [place] IN LAST 30 DAYS: No - Related Data Allergies/Adverse Reactions: Penicillins Allergy (Verified 08/05/20 09:57) Tetracyclines Allergy (Verified 08/05/20 09:57) Home Medications: januvia, metformin, insulin Past Medical History - Social History Chew tobacco use (# tins/day): No Frequency of alcohol use: Rare Drug Abuse: None - Past Medical History Cardiac Medical History: Reports: Hx Heart Attack, Hx Hypercholesterolemia, Hx Hypertension Pulmonary Medical History: Reports: Hx COPD Endocrine Medical History: Reports: Hx Diabetes Mellitus Type 2 GI Medical History: Reports: Hx Gastroesophageal Reflux Disease Psychiatric Medical History: Reports: Hx Depression Past Surgical History: Reports: Hx Cardiac Catheterization, Hx Cardiac Surgery, Hx Gynecologic Surgery, Hx Hysterectomy, Hx Orthopedic Surgery Physical Exam - Vital signs Vitals: Temp Pulse Resp BP Pulse Ox 98.5 F 70 16 122/60 100 08/05/20 09:24 08/05/20 09:24 08/05/20 09:24 08/05/20 09:24 08/05/20 09:24 - General General appearance: Appears well, Alert Notes: Right midfoot tenderness, left knee tenderness Course - Vital Signs Vital signs: Temp Pulse Resp BP Pulse Ox 98.5 F 70 16 122/60 100 08/05/20 09:24 08/05/20 09:24 08/05/20 09:24 08/05/20 09:24 08/05/20 09:24 Doctor's Discharge - Discharge Referrals: KAY THOMAS PA-C [Primary Care Provider] - Follow up as needed
--- NOTE | 2020-08-05 10:48 | RADIOLOGY REPORT (SQ) ---
EXAM DESCRIPTION: CHEST SINGLE VIEW IMAGES COMPLETED DATE/TIME: 08/05/2020 10:37 am REASON FOR STUDY: syncope COMPARISON: AP chest 09/01/2019 EXAM PARAMETERS: NUMBER OF VIEWS: One view. TECHNIQUE: Single frontal radiographic view of the chest acquired. RADIATION DOSE: NA LIMITATIONS: None. FINDINGS: LUNGS AND PLEURA: No opacities, masses or pneumothorax. No pleural effusion. MEDIASTINUM AND HILAR STRUCTURES: No masses. Contour normal. HEART AND VASCULAR STRUCTURES: Old sternotomy for CABG. No cardiomegaly. BONES: No acute findings. HARDWARE: None in the chest. OTHER: No other significant finding. IMPRESSION: NO ACUTE RADIOGRAPHIC FINDING IN THE CHEST. TECHNICAL DOCUMENTATION: JOB ID: [id number] 2010 [employer]- All Rights Reserved Reading location - IP/workstation name: [email or web address]
--- NOTE | 2020-08-05 10:48 | RADIOLOGY REPORT (SQ) ---
EXAM DESCRIPTION: FOOT RIGHT COMPLETE IMAGES COMPLETED DATE/TIME: 08/05/2020 10:37 am REASON FOR STUDY: syncope, foot/knee injury COMPARISON: None. NUMBER OF VIEWS: Three views. TECHNIQUE: AP, lateral and oblique radiographic images acquired of the right foot. LIMITATIONS: None. FINDINGS: MINERALIZATION: Normal. BONES: No acute fracture or dislocation. Prominent plantar calcaneal spur JOINTS: No effusions. SOFT TISSUES: No soft tissue swelling. No foreign body. OTHER: No other significant finding. IMPRESSION: No acute fracture or malalignment TECHNICAL DOCUMENTATION: JOB ID: [id number] 2010 [employer]- All Rights Reserved Reading location - IP/workstation name: [email or web address]
[2020-08-05 10:50] LABS: ABSOLUTE BASOPHILS # (AUTO) 0.1 10^3/uL (0.0-0.2); ABSOLUTE EOSINOPHILS # (AUTO) 0.3 10^3/uL (0.0-0.6); ABSOLUTE LYMPHOCYTES (AUTO) 1.7 10^3/uL (0.5-4.7); ABSOLUTE MONOCYTES (AUTO) 0.5 10^3/uL (0.1-1.4); ABSOLUTE NEUT (AUTO) 6.6 10^3/uL (1.7-8.2); BASOPHILS % (AUTO) 0.7 % (0-2); EOSINOPHILS % (AUTO) 3.1 % (0-6); HEMATOCRIT 41.2 % (36.0-47.0); HEMOGLOBIN 13.8 g/dL (12.0-15.5); MEAN CORPUSCULAR HEMOGLOBIN 27.7 pg (27.0-33.4); MEAN CORPUSCULAR HGB CONC 33.5 g/dL (32.0-36.0); MEAN CORPUSCULAR VOLUME 83 fl (80-97); PLATELET COUNT 347 10^3/uL (150-450); RED BLOOD COUNT 4.99 10^6/uL (3.72-5.28); SEGMENTED NEUTROPHILS % (AUTO) 72.2 % (42-78); TOTAL CELLS COUNTED % (AUTO) 100 %; WHITE BLOOD COUNT 9.1 10^3/uL (4.0-10.5)
--- NOTE | 2020-08-05 10:50 | RADIOLOGY REPORT (SQ) ---
EXAM DESCRIPTION: KNEE LEFT 4 VIEW IMAGES COMPLETED DATE/TIME: 08/05/2020 10:37 am REASON FOR STUDY: syncope, foot/knee injury COMPARISON: None. NUMBER OF VIEWS: Four views. TECHNIQUE: AP, lateral, and both oblique radiographic images acquired of the left knee. LIMITATIONS: None. FINDINGS: MINERALIZATION: Normal. BONES: No acute fracture or dislocation. No worrisome bone lesions. JOINT: No suprapatellar knee joint effusion. Moderate patellofemoral and medial compartment joint space narrowing and bony spurring. SOFT TISSUES: No soft tissue swelling. No radio-opaque foreign body. OTHER: No other significant finding. IMPRESSION: No acute fracture or malalignment. 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 TECHNICAL DOCUMENTATION: JOB ID: [id number] 2010 [employer]- All Rights Reserved Reading location - IP/workstation name: [email or web address]
[2020-08-05 11:07] LABS: ALBUMIN 4.1 g/dL (3.5-5.0); ALKALINE PHOSPHATASE 76 U/L (38-126); ANION GAP 10 (5-19); ASPARTATE AMINO TRANSFERASE 18 U/L (14-36); BILIRUBIN,DIRECT 0.3 mg/dL (0.0-0.4); BILIRUBIN,TOTAL 0.3 mg/dL (0.2-1.3); BLOOD UREA NITROGEN 6 mg/dL (7-20); CALCIUM 9.4 mg/dL (8.4-10.2); CARBON DIOXIDE 25 mmol/L (22-30); CHLORIDE 96 mmol/L (98-107); GLUCOSE 191 mg/dL (75-110); POTASSIUM 4.5 mmol/L (3.6-5.0); TOTAL PROTEIN 6.9 g/dL (6.3-8.2)
[2020-08-05] MEDS ORDERED: NORMAL SALINE 1000 ML 1,000 ML IV ONE (11:43)
--- NOTE | 2020-08-05 11:43 | ER Document Report ---
ED General - General Chief Complaint: Syncope Stated Complaint: KNEE AND FOOT INJURY Time Seen by Provider: 08/05/20 10:04 Primary Care Provider: KAY THOMAS PA-C [Primary Care Provider] - Follow up as needed TRAVEL OUTSIDE OF THE [place] IN LAST 30 DAYS: No - HPI Notes: Patient is a 60-year-old female who presents to the emergency department for evaluation of right foot pain, left knee pain, after syncopal episode. The patient states that the syncopal episodes have been ongoing for about a year. She has been seen by her primary care doctor, no clear reason has been found for them as of yet. She states that she was walking across the room today, started to feel dizzy, her vision went black, and she passed out for approximately 2 to 3 seconds. She injured her right foot and her left knee. She states that it hurts to bear weight at all on her right foot. She is had no recent medication changes. She denies any symptoms at this time beyond the foot pain. She has had no fevers or chills. No nausea or vomiting. No chest pain or shortness of breath. She has been taking her medications as prescribed, no recent changes in her medications. - Related Data Allergies/Adverse Reactions: Penicillins Allergy (Verified 08/05/20 09:57) Tetracyclines Allergy (Verified 08/05/20 09:57) Home Medications: januvia, metformin, insulin, multiple other medications the patient cannot remember at this time Past Medical History - General Information source: Patient - Social History Smoking Status: Current Every Day Smoker Chew tobacco use (# tins/day): No Frequency of alcohol use: Rare Drug Abuse: None Family History: CAD Patient has homicidal ideation: No - Past Medical History Cardiac Medical History: Reports: Hx Coronary Artery Disease, Hx Heart Attack, Hx Hypercholesterolemia, Hx Hypertension Pulmonary Medical History: Reports: Hx COPD Endocrine Medical History: Reports: Hx Diabetes Mellitus Type 2 GI Medical History: Reports: Hx Gastroesophageal Reflux Disease Psychiatric Medical History: Reports: Hx Bipolar Disorder, Hx Depression Past Surgical History: Reports: Hx Cardiac Catheterization, Hx Cardiac Surgery, Hx Coronary Artery Bypass Graft, Hx Gynecologic Surgery, Hx Hysterectomy, Hx O rthopedic Surgery Review of Systems - Review of Systems Constitutional: No symptoms reported EENT: No symptoms reported Cardiovascular: See HPI Respiratory: No symptoms reported Gastrointestinal: No symptoms reported Genitourinary: No symptoms reported Musculoskeletal: See HPI Skin: No symptoms reported Neurological/Psychological: No symptoms reported -: Yes All other systems reviewed and negative Physical Exam - Vital signs Vitals: Temp Pulse Resp BP Pulse Ox 98.5 F 70 16 122/60 100 08/05/20 09:24 08/05/20 09:24 08/05/20 09:24 08/05/20 09:24 08/05/20 09:24 - Notes Notes: Vital signs reviewed, please refer to chart. Head is normocephalic, atraumatic. Pupils equal round, reactive to light. Neck is supple without meningismus. Heart is regular rate and rhythm. Lungs are clear to auscultation bilaterally. Abdomen is soft, nontender, normoactive bowel sounds throughout. Extremities without cyanosis, clubbing. Posterior calves are nontender. Peripheral pulses are equal. Skin is warm and dry. Patient is awake, alert, oriented x3. Cranial nerves II - XII are grossly intact without focal neurological deficits. Strength is plus 5 out of 5 bilateral upper and lower extremities. Sensation is intact. Reflexes symmetrical. Intact [id number], rapid alternating movements, [id number]. Examination of the right lower extremity is no obvious deformity. The patient has tenderness over the navicular bone medially. No obvious deformity. Neurovascularly intact distally. No fifth metatarsal head or cuboid tenderness to palpation. No tenderness about the malleoli or the fibular head. Examination of the left lower extremity yields no obvious signs of deformity. She has a well-healing surgical scar overlying the left knee. She has full range of motion of the knee, minimal tenderness to the patella. Neurovascularly intact distally. Course - Re-evaluation Re-evalutation: 08/05/20 11:42 Patient presents to the emergency department for evaluation. Laboratory investigations and other orders as placed through triage. X-rays show no significant abnormality. Her laboratory investigations reveal a mild hyponatremia. I will go and give her a liter of fluids. I do not have a clear etiology of her syncope at this time. I am still awaiting EKG, but she has normal neurological exam, no other acute findings. Assuming normal EKG, patient is encouraged to quit smoking, follow closely with primary care, and return to the ED with worsening. 08/05/20 11:50 EKG unchanged. Patient will be discharged. 08/05/20 11:54 Patient does not want IV fluids at this time. She is advised to drink electrolyte replacement drinks like Gatorade. She is not vomiting, I do believe this is a reasonable alternative. She is advised to follow-up with her primary care doctor in regards to this low sodium level. She voiced understanding of his discharge. - Vital Signs Vital signs: Temp Pulse Resp BP Pulse Ox 98.5 F 70 16 122/60 100 08/05/20 09:24 08/05/20 09:24 08/05/20 09:24 08/05/20 09:24 08/05/20 09:24 - Laboratory Result Diagrams: 08/05/20 10:15 08/05/20 10:15 Laboratory results interpreted by me: 08/05/20 10:15 Sodium 130.8 L Chloride 96 L BUN 6 L Glucose 191 H - Diagnostic Test Radiology reviewed: Reports reviewed Radiology results interpreted by me: 08/05/20 11:44 Chest X-Ray 08/05/20 10:07 IMPRESSION: NO ACUTE RADIOGRAPHIC FINDING IN THE CHEST. Foot X-Ray 08/05/20 10:07 IMPRESSION: No acute fracture or malalignment Knee X-Ray 08/05/20 10:07 IMPRESSION: No acute fracture or malalignment. 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 - EKG Interpretation by Me Additional EKG results interpreted by me: 08/05/20 11:50 Sinus mechanism with rate of 66 bpm. Left axis deviation. Normal intervals. Diffuse T wave flattening and inversion, concerning for possible ischemia, but unchanged when compared to prior study of March 04, 2020. Discharge - Discharge Clinical Impression: Hyponatremia, Syncope and collapse Right foot injury Qualifiers: Encounter type: initial encounter Qualified Code(s): S99.921A - Unspecified injury of right foot, initial encounter Left knee injury Qualifiers: Encounter type: initial encounter Qualified Code(s): S89.92XA - Unspecified injury of left lower leg, initial encounter Condition: Stable Disposition: HOME, SELF-CARE Instructions: Use of Crutches ([facility]), Hyponatremia ([facility]), Syncopal Episode ([facility]) Additional Instructions: Rest. Continue your home medications as prescribed. Stay well-hydrated. Follow-up with your doctor next week. If your pain persists in your foot, you may require repeat x-rays to rule out a small fracture. Please use crutches to avoid weightbearing and pain. You should also have your sodium rechecked with your primary care provider at that time. If you develop worsening or new concerning symptoms of any sort, please return immediately to the emergency department for evaluation. Referrals: KAY THOMAS PA-C [Primary Care Provider] - Follow up as needed
[2020-08-05 12:12] VITALS: BP 130/65
--- NOTE | 2020-08-05 16:04 | EKG REPORT ---
SEVERITY:- ABNORMAL ECG - SINUS RHYTHM BORDERLINE LEFT AXIS DEVIATION BORDERLINE T ABNORMALITIES, DIFFUSE LEADS : Confirmed by: Olu Eller MD 05-Aug-2020 16:04:22
== END 2020-08-05 12:10 | disposition home or self-care (01) ==
LOC: ER 09:18
DX: S89.92XA Unspecified injury of left lower leg, initial encounter (principal); S99.921A Unspecified injury of right foot, initial encounter; W18.30XA Fall on same level, unspecified, initial encounter; E87.1 Hypo-osmolality and hyponatremia; R55 Syncope and collapse; F17.200 Nicotine dependence, unspecified, uncomplicated; E78.00 Pure hypercholesterolemia, unspecified; J44.9 Chronic obstructive pulmonary disease, unspecified; E11.9 Type 2 diabetes mellitus without complications; Z88.0 Allergy status to penicillin; Z79.84 Long term (current) use of oral hypoglycemic drugs; Z79.4 Long term (current) use of insulin; Z95.1 Presence of aortocoronary bypass graft; I25.2 Old myocardial infarction
CPT/HCPCS: 36415; 71045; 80053; 84484; 85025; 93005; 93010; 99285